=== PATIENT | female | born 1980 | race Two or more races ===

== ENCOUNTER 2024-05-03 03:20 | Emergency (ER) | payer OTHER ==
[~2024-05-03] VITALS: Ht 165.1 cm; Wt 71.7 kg
[2024-05-03] MEDS ORDERED: PRENATAL + DHA1 EAC1 PO (03:45)
[2024-05-03] MEDS ORDERED: ACETAMINOPHEN 500 MG GEL..CAP PO STA (04:14)
[2024-05-03] MEDS ORDERED: ACETAMINOPHEN 500 MG GEL..CAP PO ONE (04:18)
[2024-05-03 04:44] LABS: HEMATOCRIT 41.3 % (36.0-45.00); HEMOGLOBIN 14.1 g/dL (12.0-15.00); MEAN CELL VOLUME 91.5 fL (80.00-100.00); MEAN CORPUSCULAR HEMOGLOBIN 31.2 pg (27.00-32.0); MEAN CORPUSCULAR HGB CONC 34.1 g/dl (32.0-36.0); PLATELET COUNT 303 K/uL (150-450); RED BLOOD COUNT 4.52 M/uL (4.00-6.00); RED CELL DISTRIBUTION WIDTH 13.2 % (11.5-14.5)
[2024-05-03 05:00] LABS: PH,URINE 5.5 (5.0-8.0); URINE APPEARANCE Clear; URINE BILIRRUBIN Negative (NEGATIVE); URINE BLOOD Small; URINE COLOR Yellow; URINE GLUCOSE Negative (NEGATIVE); URINE KETONE Trace (NEGATIVE); URINE LEUKOCYTE Trace; URINE NITRATE Negative; URINE PROTEIN Negative (NEGATIVE)
[2024-05-03 05:01] LABS: PARTIAL THROMBOPLASTIN TIME 28.2 SECONDS (22.0-34.0); PROTHROMBIN TIME 10.9 SECONDS (9.0-11.5)
[2024-05-03 05:01] LABS: URINE CAST 0.29 uL (0.0-1.40); URINE EPITHELIAL CELLS 34.8 uL (0.0-38.8); URINE WBC 19.4 uL (0.0-23.2)
[2024-05-03 05:23] LABS: CALCIUM 9.3 mg/dL (8.5-10.1); CREATININE SERUM 0.86 mg/dL (0.55-1.02); GFR 72.02; POTASSIUM 4.11 mEq/L (3.5-5.1)
== END 2024-05-03 08:30 ==
LOC: ER 03:20
PROVIDERS: General Practice
DX: O20.8 Other hemorrhage in early pregnancy (principal); Z3A.01 Less than 8 weeks gestation of pregnancy